=== PATIENT | female | born 1965 | race Caucasian/White ===

== ENCOUNTER 2023-09-11 12:09 | Emergency (ER) | payer MEDICAID ==
[~2023-09-11] VITALS: Ht 154.9 cm; Wt 71.0 kg
[2023-09-11 13:10] LABS: BILIRUBIN,URINE NEGATIVE (Neg); CLARITY,URINE SLIGHTLY CLOUDY (Clear); COLOR,URINE YELLOW (Yellow); GLUCOSE, URINE NEGATIVE (Neg); KETONES,URINE NEGATIVE (Neg); LEUKOCYTE ESTERASE ,URINE NEGATIVE (Neg); NITRITES, URINE NEGATIVE (Neg); OCCULT BLOOD,URINE TRACE-INTACT (Neg); PH,URINE 5.5 (4.8-8.0); PROTEIN,URINE NEGATIVE (Neg); UROBILINOGEN,URINE 0.2 E.U/dL (0.2-1.0)
[2023-09-11 13:11] LABS: URINE HCG NEGATIVE (NEG)
[2023-09-11 13:13] LABS: UA COLLECTION TYPE CLN CATCH MIDSTREAM
[2023-09-11 13:18] LABS: BACTERIA,URINE NONE SEEN /HPF (Neg); RBC,URINE 0-2 /HPF (0-2); SQUAMOUS EPITHELIAL CELL,UR MANY /LPF (FEW); WBC,URINE 0-4 /HPF (0-4)
[2023-09-11 13:21] LABS: BASOPHILS # (AUTO) 0.1 X10'3 (0-0.2); BASOPHILS % (AUTO) 0.5 % (0-1); EOSINOPHILS # (AUTO) 0.1 X10'3 (0-0.9); EOSINOPHILS % (AUTO) 0.7 % (0-6); HEMATOCRIT 39.5 % (35.0-45.0); LYMPHOCYTES # (AUTO) 2.7 X10'3 (1.1-4.8); LYMPHOCYTES % (AUTO) 21.6 % (21-51); MEAN CORPUSCULAR HEMOGLOBIN 28.9 PG (27.0-31.0); MEAN CORPUSCULAR VOLUME 87.6 FL (78-98); MEAN PLATELET VOLUME 8.6 FL (7.4-10.4); MONOCYTES # (AUTO) 0.9 X10'3 (0-0.9); MONOCYTES % (AUTO) 7.5 % (2-12); NEUTROPHILS # (AUTO) 8.6 X10'3 (1.8-7.7); NEUTROPHILS % (AUTO) 69.7 % (42-75); PLATELET COUNT 321 X10'3 (140-440); RED BLOOD COUNT 4.51 X10'6 (4.20-5.60); WHITE BLOOD COUNT 12.3 X10'3 (4.5-11.0)
[2023-09-11 13:52] LABS: ALANINE AMINOTRANSFERASE 18 U/L (12-78); ALBUMIN 3.3 G/DL (3.4-5.0); ALBUMIN/GLOBULIN RATIO 0.8 (1.1-1.5); ALKALINE PHOSPHATASE 87 IU/L (46-116); ANION GAP 12 (8-16); ASPARTATE AMINO TRANSFERASE 17 U/L (10-37); BILIRUBIN,TOTAL 0.4 MG/DL (0.1-1.0); BLOOD UREA NITROGEN 16 MG/DL (7-18); BUN/CREATININE RATIO 17.6 (10.0-20.0); CALCIUM 8.7 MG/DL (8.5-10.1); CHLORIDE 105 MMOL/L (99-107); CREATININE 0.91 MG/DL (0.40-0.90); GLUCOSE 96 MG/DL (70-104); LIPASE 41 U/L (16-77); POTASSIUM 3.9 MMOL/L (3.5-5.1); SODIUM 140 MMOL/L (135-145); TOTAL CARBON DIOXIDE 23.1 MMOL/L (24-32); TOTAL PROTEIN 7.4 G/DL (6.4-8.2); eCRCL 50 ML/MIN; eGFR 63 ML/MIN
[2023-09-11] MEDS: normal saline 1000ml 1,000 ML IV ONE (14:06)
[2023-09-11] MEDS: mag hydrox/Alum hydrox/simeth 30ml oral suspension PO ONE (14:06)
[2023-09-11] MEDS: famotidine/PF 10 mg/ml inj IV ONE (14:07)
[2023-09-11] MEDS: morphine 4 MG/ML inj SYRINge IV ONE (14:08)
[2023-09-11] MEDS: ondansetron/PF 4mg/2ml inj IV ONE (14:09)
[2023-09-11] MEDS ORDERED: iohexol 300mg/ml 100ml inj. ONE (14:50)
[2023-09-11] MEDS: proCHLORperazine 10 MG/2 ml inj IV ONE (16:08)
[2023-09-11] MEDS: diphenhydrAMINE 50 mg/ml inj IV ONE (16:09)
[2023-09-11] MEDS ORDERED: ONDA4TAB12 PO (16:28)
[2023-09-11 18:31] VITALS: BP 142/66; PULSE 64; RESP 16; TEMP 98; O2SAT 100
== END 2023-09-11 16:26 | disposition home or self-care (01) ==
LOC: ER 12:09
DX: K52.9 Noninfective gastroenteritis and colitis, unspecified (principal); K56.7 Ileus, unspecified; R10.11 Right upper quadrant pain; Z88.0 Allergy status to penicillin; Z88.1 Allergy status to other antibiotic agents; Z88.8 Allergy status to other drugs, medicaments and biological substances; Z88.2 Allergy status to sulfonamides; Z79.899 Other long term (current) drug therapy
CPT/HCPCS: 36415; 74177; 76700; 80053; 81001; 81025; 83690; 85025; 96361; 96374; 96375; 99285; J0780; J1200; J2270; J2405; J3490; J7030; Q9967